=== PATIENT | male | born 1965 | race Caucasian/White ===

== ENCOUNTER 2018-07-19 05:45 | Day surgery (SDC) | payer MEDICARE, OTHER ==
[~2018-07-19] VITALS: Ht 175.3 cm; Wt 147.5 kg
[~2018-07-19 05:45] MED LIST: SODIUM CHLORIDE 0.9% 1,000 ML IV ONE
[2018-07-19] MEDS ORDERED: SODIUM CHLORIDE 0.9% 1,000 ML IV ONE (06:00)
[2018-07-19] MEDS ORDERED: CARV6 PO (06:45)
[2018-07-19] MEDS ORDERED: FURO20 PO (06:45)
[2018-07-19] MEDS ORDERED: KDUR10 PO (06:45)
[2018-07-19] MEDS ORDERED: HYDR10TA31 PO (06:45)
[2018-07-19] MEDS ORDERED: FERR-89 PO (06:45)
[2018-07-19] MEDS ORDERED: AMLO-512 PO (06:45)
[2018-07-19] MEDS ORDERED: LOSA25TA16 PO (06:45)
[2018-07-19] MEDS ORDERED: METF-960 PO (06:45)
[2018-07-19 06:52] LABS: GLUCOMETER DEV NAME(LOC) SDS 5; GLUCOSE,POINT OF CARE 157 MG/DL (70-110)
== END 2018-07-19 09:20 | disposition home or self-care (01) ==
LOC: SURGERY 05:45
PROVIDERS: ATTEND Student in an Organized Health Care Education/Training Program
DX: K64.8 Other hemorrhoids (principal); D50.9 Iron deficiency anemia, unspecified; K29.50 Unspecified chronic gastritis without bleeding; B96.81 Helicobacter pylori [H. pylori] as the cause of diseases classified elsewhere; K31.89 Other diseases of stomach and duodenum; G89.29 Other chronic pain; I11.0 Hypertensive heart disease with heart failure; I50.9 Heart failure, unspecified; M10.9 Gout, unspecified; E11.9 Type 2 diabetes mellitus without complications; F17.210 Nicotine dependence, cigarettes, uncomplicated; E66.01 Morbid (severe) obesity due to excess calories; Z98.84 Bariatric surgery status; Z68.42 Body mass index [BMI] 45.0-49.9, adult; Z79.82 Long term (current) use of aspirin; Z72.89 Other problems related to lifestyle; Z87.19 Personal history of other diseases of the digestive system; Z79.84 Long term (current) use of oral hypoglycemic drugs; Z79.899 Other long term (current) drug therapy
CPT/HCPCS: 43239; 45378; 82962; 88305; 88312; 88313; 93005; C1769; J7030